=== PATIENT | female | born 1960 | race Caucasian/White ===

== ENCOUNTER 2017-06-16 08:01 | Inpatient (IN) | payer OTHER ==
[~2017-06-16] VITALS: Ht 167.6 cm; Wt 79.8 kg
[~2017-06-16 08:01] MED LIST: ANESTHESIA TRAY IN PYXIS 1 EA TRAY MC ONE; BACITRACIN 50000 UNITS/VIAL ONE; BUPIVACAINE 0.5 % PF 150 MG/30 ML VIAL ONE; CEFAZOLIN SODIUM/DEXTROSE,ISO 50 ML IV ONE; KETOROLAC TROMETHAMINE INJ 30 MG/ML VIAL ONE
[2017-06-16] MEDS ORDERED: TRANEXAMIC ACID 3,000 MG in SODIUM CHLORIDE IRRIG SOLUTION 70 ML IR ONE (09:00)
[2017-06-16] MEDS ORDERED: ROCURONIUM BROMIDE 50 MG/5 ML ONE (10:56)
[2017-06-16] MEDS ORDERED: FENTANYL PF 100MCG/2ML AMPUL ONE (10:56)
[2017-06-16] MEDS ORDERED: MIDAZOLAM HCL 2 MG/2ML VIAL ONE (10:56)
[2017-06-16] MEDS ORDERED: HYDROMORPHONE 1 MG/1 ML DISP.SYRIN ONE (12:59)
[2017-06-16] MEDS ORDERED: MEPERIDINE HCL/PF 50 MG/ML DISP.SYRIN ONE (13:02)
[2017-06-16 13:45] VITALS: BP 125/74
--- NOTE | 2017-06-16 14:00 | NUR ---
MS RN NOTES 57 YEARS OLD FEMALE TRANSFERRED FROM PACU, S/P LEFT KNEE ARTHROPLASTY BY DR. GOMES. PATIENT APPEARS MILDLY SEDATED AT THIS TIME BUT AROUSES EASILY. ON OXYGEN AT 2LPM VIA NC, NO SOB. V/S TAKEN AND RECORDED. LEFT KNEE DRESSING INTACT, KNEE IMMOBILIZER AND SCD IN PLACE. LU CATH INTACT, DRAINING TO GRAVITY, URINE CLEAR AND YELLOW, NO SEDIMENT NOTED. IV IN LEFT WRIST PATENT AND INTACT, FLUSHES WELL. PLACE CALL LIGHT WITHIN REACH. WILL CONT TO MONITOR.
[2017-06-16] MEDS ORDERED: PRAZ1CAP5 PO (15:35)
[2017-06-16] MEDS ORDERED: QUET100T PO (15:35)
[2017-06-16] MEDS ORDERED: ALPR1TAB2 PO (15:35)
[2017-06-16] MEDS ORDERED: OXYC-128 PO (15:35)
[2017-06-16 16:00] VITALS: BP 120/86
[2017-06-16] MEDS ORDERED: ACETAMINOPHEN 325 MG TABLET PO PRN (16:00)
[2017-06-16] MEDS ORDERED: ALPRAZOLAM 1 MG TABLET PO PRN ×2 (16:00→18:00)
[2017-06-16] MEDS ORDERED: DOCUSATE SODIUM 250 MG CAPSULE PO PRN (16:00)
[2017-06-16] MEDS ORDERED: SENNOSIDES 8.6 MG TABLET PO PRN (16:00)
[2017-06-16] MEDS ORDERED: HYDROCODONE/APAP 5/325MG 1 EACH TABLET PO PRN (16:00)
[2017-06-16] MEDS ORDERED: BISACODYL SUPP (10 MG) 10 MG/SUPP.RECT SUPP.RECT RC PRN ×2 (16:00→17:30)
[2017-06-16] MEDS ORDERED: ZOLPIDEM TARTRATE 5 MG TABLET PO PRN (16:30)
[2017-06-16] MEDS ORDERED: ONDANSETRON HCL/PF 4 MG/2 ML VIAL IVP PRN ×2 (16:30→18:00)
--- NOTE | 2017-06-16 16:36 | NUR ---
RECEIVED PHONE CALL FROM DR. AIKEN, REVIEWED CURRENT PAIN MEDICATIONS ORDERED WITH MD, AND PATIENTS REQUEST TO SWITCH NORCO TO PERCOCET, PER MD HE WILL CALL PHARMACY FOR PAIN MEDICATION ORDERS. PATIENT MADE AWARE.
[2017-06-16] MEDS: IV D5/0.45 NACL 1,000 ML IV PRN (16:38)
[2017-06-16] MEDS: oxyCODONE IR immediate release 5 MG CAPSULE PO PRN (17:12)
[2017-06-16 17:23] LABS: CHOLESTEROL 185 mg/dL (<200); HDL CHOLESTEROL 54 mg/dL (40-60); LDL 96 mg/dL (0-99); TRIGLYCERIDES 174 mg/dL (30-150)
[2017-06-16] MEDS ORDERED: BUPIVACAINE 0.25% 75 MG/30 ML VIAL ONE (17:27)
[2017-06-16] MEDS ORDERED: CLONIDINE HCL 0.1 MG TABLET PO PRN (17:30)
[2017-06-16] MEDS ORDERED: diphenhydrAMINE HCL 25 MG CAPSULE PO PRN (17:30)
[2017-06-16] MEDS ORDERED: MAG HYDROX/AL HYDROX/SIMETH 30 ML UDC PO PRN (17:30)
[2017-06-16] MEDS ORDERED: HYDROMORPHONE 1 MG/1 ML DISP.SYRIN IV PRN (17:30)
[2017-06-16] MEDS ORDERED: MENTHOL/CETYLPYRD (CEPACOL) 1 LOZ LOZENGE MM PRN (17:30)
[2017-06-16] MEDS: ASPIRIN 325 MG TABLET PO SCH (17:50)
[2017-06-16] MEDS ORDERED: NALOXONE HCL 0.4 MG/ML AMPUL IV PRN (18:00)
[2017-06-16] MEDS ORDERED: PROMETHAZINE HCL 25 MG/ML AMPUL IM PRN (18:00)
[2017-06-16] MEDS: ANCEF 1 GM/50 ML D5W IV SCH ×2 (18:09)
[2017-06-16] MEDS: HYDROMORPHONE MDV 30 MG in IV NS 0.9% 15 ML, PCA TOTAL VOLUME 1 BAG IV PRN ×3 (18:34)
--- NOTE | 2017-06-16 19:01 | NUR ---
MS RN CLOSING NOTES PT A&OX3 STATUS POST L ARTHROPLASTY. PT TOLERATING ROOM AIR WITH NO SOB. PT IV INTACT IN LEFT HAND RUNNING D5 1/2NS AT 125ML AND FITNESS AND WELLNESS DIRECTOR DILAUDID. LEFT LEG IMMOBILIZED, BI LAT DVT PUMPS. PT WITH NO COMPLAINTS OR CONCERNS AT THIS TIME. WILL ENDORSE TO PM NURSE.
[2017-06-16 20:00] VITALS: BP 112/62
--- NOTE | 2017-06-16 20:00 | NUR ---
MS KATINA INITIAL NOTES RECEIVED REPORT FROM AM NURSE AND CHECKED. SHE'S AWAKE AND ALERT WITH IVF OF D51/2 NS AT 125ML/HR INFUSING AT THIS TIME. PT ALSO ON MAGNAFLUX OPERATOR DILAUDID Mdv 30mg in OV0.9%Ns 50ml, 15ml,MAGNAFLUX OPERATOR total Volume 1 bag. concentration =1mg/ml, rate =0mg/hr, no adjustment up or down . MAGNAFLUX OPERATOR dose =0.2mg Lock out =10minutes 4hr limit =4 8mg as ordered. no signs of any acute distress noted at this time. left knee on immobilizer. bot heels up on pillows. kept her warm and comfortable at all times. will continue to monitor.
[2017-06-16] MEDS ORDERED: TRIMETHOBENZAMIDE IM PRN (21:30)
--- NOTE | 2017-06-16 21:35 | NUR ---
APPRENTICE LINEMAN THIRD STEP NOTES SEEN BY DR AIKEN WITH ORDERS NOTED AND CARRIED OUT.
[2017-06-16] MEDS ORDERED: NICOTINE PATCH (21MG) 21 MG PATCH.TD24 TD SCH (21:45)
[2017-06-16] MEDS ORDERED: QUETIAPINE FUMARATE 100 MG TABLET PO SCH (22:00)
[2017-06-16] MEDS ORDERED: NICOTINE PATCH (21MG) 21 MG PATCH.TD24 TD ONE (22:05)
[2017-06-16] MEDS ORDERED: ALPRAZOLAM 1 MG TABLET ONE (22:05)
[2017-06-16] MEDS: ALPRAZOLAM 1 MG TABLET PO PRN (22:09)
[2017-06-16] MEDS: PANTOPRAZOLE 40 MG TABLET.DR PO SCH (22:10)
--- NOTE | 2017-06-16 22:10 | NUR ---
PATTERNMAKER GRADER/NOTES ROUTINE MEDS GIVEN WELL HER XANAX 2MG PO PER PT REQUESTED MD ORDERED. SNACKS ALSO SERVED. KEPT HER WARM AND COMFORTABLE AT ALL TIMES. PLACE CALL LIGHT AT REACH.
[2017-06-16] MEDS: PRAZOSIN HCL 1 MG CAPSULE PO SCH (22:11)
[2017-06-17] MEDS: ANCEF 1 GM/50 ML D5W IV SCH ×2 (00:16)
--- NOTE | 2017-06-17 00:45 | NUR ---
MS TEAR DOWN MAN CLOSING NOTES GAVE REPORT TO ANOTHER NURSE AARON FOR CONTINUITY OF CARE.
--- NOTE | 2017-06-17 00:47 | NUR ---
MS/RN ASSUMED CARE OF THIS PATIENT FOR CONTINUITY OF CARE. PATIENT IS SLEEPING, AROUSABLE, APPEAR COMFORTABLE, NO DISTRESS NOTED, DIRECTOR OF RESERVATIONS IN PLACE, CALL LIGHT IN REACH. WILL MONITOR.
[2017-06-17] MEDS: IV D5/0.45 NACL 1,000 ML IV PRN ×3 (02:23→21:33)
[2017-06-17] MEDS ORDERED: ALPRAZOLAM 1 MG TABLET ONE (05:55)
[2017-06-17] MEDS: ALPRAZOLAM 1 MG TABLET PO PRN ×3 (05:56→22:29)
--- NOTE | 2017-06-17 06:04 | NUR ---
MS/RN PATIENT IS AWAKE AT THIS TIME, C/O ANXIETY/PANIC ATTACK, REQUESTED MEDICATION, XANAX 2 MG PO WAS GIVEN ORDERED. WILL MONITOR.
--- NOTE | 2017-06-17 06:48 | NUR ---
MS/RN PATIENT APPEAR SLEEPING AT THIS TIME, APPEAR COMFORTABLE, NO DISTRESS NOTED, CALL LIGHT IN REACH. WILL CONTINUE TO MONITOR.
[2017-06-17 07:46] LABS: BASOPHILS # (AUTO) 0.1 /CMM (0.0-0.2); BASOPHILS % (AUTO) 0.6 % (0.0-2.0); EOSINOPHILS # (AUTO) 0.2 /CMM (0.0-0.7); EOSINOPHILS % (AUTO) 1.9 % (0.0-6.0); HEMATOCRIT 34 % (33-45); HEMOGLOBIN 11.2 g/dL (11.5-14.8); LYMPHOCYTES # (AUTO) 2.6 /CMM (0.8-4.8); LYMPHOCYTES % (AUTO) 26.9 % (20.0-44.0); MEAN CORPUSCULAR HEMOGLOBIN 29 PG (26.0-33.0); MEAN CORPUSCULAR HGB CONC 33 g/dl (31.0-36.0); MEAN CORPUSCULAR VOLUME 87 fL (82-100); MONOCYTES # (AUTO) 0.6 /CMM (0.1-1.30); MONOCYTES % (AUTO) 6.4 % (2.0-12.0); NEUTROPHILS # (AUTO) 6.1 /CMM (1.8-8.9); NEUTROPHILS % (AUTO) 64.2 % (43.0-81.0); PLATELET COUNT (AUTO) 221 /CMM (150-450); RDW COEFFICIENT OF VARIATION 13.8 (11.5-15.0); RED BLOOD CELL COUNT(AUTO) 3.87 MIL/uL (4.0-5.2); WHITE BLOOD COUNT (AUTO) 9.6 K/uL (4.3-11.0)
--- NOTE | 2017-06-17 07:58 | NUR ---
MS RN OPENING NOTES PT RECEIVED FROM NIGHT NURSE AT 0710 WITH HYDROGENATION OPERATOR: DILUADID CONCENTRATION 1MG/ML, 25.4ML REMAINING, DOSE 0.2MG, 10MIN LOCKOUT. PT A&OX3, DROWSY AND WITH SOME SPEECH SLURRING. PT TOLERATING ROOM AIR WITH NO SOB BUT O2 SAT AT 90%, O2 COMMENCED VIA NC WITH SATS RETURNING TO 96%. LUNG [place] AUSCULTATED WITH BI-LAT WHEEZING PRESENT. BOWEL SOUNDS ACTIVE. PT IV LEFT HAND WITH D5 1/2NS RUNNING AT 125ML/PH. C/O HEADACHE 10/10, LEG PAIN /10.
[2017-06-17 08:00] VITALS: BP_SYST 101; BP_SYST 90; BP_DIAS 54
[2017-06-17 08:07] LABS: ALBUMIN 2.9 g/dL (3.4-5.0); BILIRUBIN,TOTAL 0.2 mg/dL (0.2-1.0); CALCIUM, SERUM 8.6 mg/dL (8.5-10.1); CREATININE 0.6 mg/dL (0.6-1.3); MAGNESIUM 1.9 mg/dL (1.8-2.4); PHOSPHORUS 4.8 mg/dL (2.5-4.9); POTASSIUM 4.1 mmol/L (3.5-5.1); TOTAL PROTEIN, SERUM 5.5 g/dL (6.4-8.2)
[2017-06-17 08:16] LABS: THYROID STIMULATING HORMONE 0.805 uIU/mL (0.358-3.74)
--- NOTE | 2017-06-17 10:19 | NUR ---
MS RN NOTES PHYSICAL THERAPY REPORTS 50 FT AMBULATION WITH X1 ASSISTANCE AND WALKER. WILL D/C ALY.
[2017-06-17] MEDS: ASPIRIN 325 MG TABLET PO SCH ×2 (10:40→18:03)
--- NOTE | 2017-06-17 11:52 | NUR ---
PATIENT IS SEEN BY MIGUELINA PRATHER/JENNIFER. WILL CHANGE DRESSING TO LEFT KNEE TOMORROW 06/18/17 PER PA. LU CATH REMOVED, OBTAINED 850 ML URINE. WILL MONITOR FOR URINARY RETENTION. OFFERED PO FLUIDS TO DRINK.
--- NOTE | 2017-06-17 12:49 | NUR ---
PATIENT IS CURRENTLY ON NICOTINE PATCH, REQUESTING TO SMOKE. HEALTH EDUCATION GIVEN TO THE PATIENT. DISCUSSED RISK AND BENEFITS OF SMOKING CESSATION BY USE OF NICOTINE PATCH, BUT PATIENT STILL INSISTED TO SMOKE. NOTIFIED DR. TIJERINA.
--- NOTE | 2017-06-17 13:07 | NUR ---
PATIENT SIGNED SMOKING CONSENT FORM. NICOTINE PATCH WAS DC'D AND PATCHED WAS REMOVED.
--- NOTE | 2017-06-17 15:15 | NUR ---
MS RN NOTES PT OOB OF BED AND SEATED APPROX 80MINS WITH L KNEE IMMOBILIZED. PT REPORTED INCREASING ANXIETY R/T NEED FOR CIGARETTES, STOGIE PACKER ESCORT VIA WHEELCHAIR FOR CIGARETTE. PT RETURNED, NO CONCERNS OR COMPLAINTS AT THIS TIME.
[2017-06-17 16:00] VITALS: BP 108/63
[2017-06-17] MEDS: DOCUSATE SODIUM 100 MG CAPSULE PO SCH (18:03)
--- NOTE | 2017-06-17 18:18 | NUR ---
HYDROCODONE SALES ATTENDANT BUILDING MATERIALS IV 24 HOURS BAG REPLACED PER PROTOCOL. WAISTED 15ML HYDROCODONE FROM THE BAG, WITNESSED BY ANOTHER KAYLA.
[2017-06-17] MEDS: HYDROMORPHONE MDV 30 MG in IV NS 0.9% 15 ML, PCA TOTAL VOLUME 1 BAG IV PRN ×3 (18:29)
--- NOTE | 2017-06-17 18:29 | NUR ---
HANG 2ND BAG OF HYDROCODONE IV ELECTION CLERK WITNESSED BY ANOTHER RN-YOLANDE.
--- NOTE | 2017-06-17 19:00 | NUR ---
MS RN CLOSING NOTES PT ENDORSED TO NIGHT NURSE WITH AT 1915 WITH VENEER JOINTER OPERATOR: DILUADID CONCENTRATION 1MG/ML, 29.6ML REMAINING, DOSE 0.2MG, 10MIN LOCKOUT. PT A&OX3, RESTING IN BED. BED IN LOWEST LOCKED POSITION WITH HANDRAILSX3 AND CALL WILKERSON IN REACH. PT WITH O2 SAT MONITORING R/T VENEER JOINTER OPERATOR. PT WITH O2 2L/MIN VIA NC, NO SOB OR DISTRESS. PT WITH IV G#20 RIGHT WRIST PATENT AND RUNNING D5 1/2NS 125ML/PH AND VENEER JOINTER OPERATOR. ALL DAY NURSE DUTIES ATTENDED TO. PT WITH NO CONCERNS OR COMPLAINTS AT THIS TIME. WILL ENDORSE PT TO NIGHT NURSE.
--- NOTE | 2017-06-17 19:35 | NUR ---
MS RN NOTE\ RECEIVED PATIENT FROM DAY SHIFT, PATIENT IS ALERT AND ORIENTEDX4, DENIES RESPIRATORY DISTRESS AND COMPLAINS OF LEFT KNEE PAIN DUE TO S/P SURGERY YESTERDAY CURRENTLY ON PACKAGE SEALER MACHINE PUMP. IV ON LEFT WRIST IS PATENT AND INTACT, PACKAGE SEALER MACHINE AND FLUID ARE RUNNING. SRX2, BED IN LOW POSITION, CALL LIGHT WITHIN REACH, WILL CONTINUE TO MONITOR PATIENT.
[2017-06-17 20:00] VITALS: BP 99/58
[2017-06-17] MEDS ORDERED: NICOTINE PATCH (21MG) 21 MG PATCH.TD24 TD SCH (21:00)
[2017-06-17] MEDS: PANTOPRAZOLE 40 MG TABLET.DR PO SCH (21:27)
[2017-06-17] MEDS: QUETIAPINE FUMARATE 100 MG TABLET PO PRN (21:32)
[2017-06-17] MEDS: PRAZOSIN HCL 1 MG CAPSULE PO SCH (21:33)
--- NOTE | 2017-06-17 22:45 | NUR ---
MS RN NOTE DR. AIKEN SAW THE PATIENT AND ORDERED TO D/C SAP CRM DEVELOPER PUMP AT NOON TOMORROW, AND ADMINISTER BREAKTHROUGH PAIN MED OXY IR PO AND DILAUDID 1MG IVP.
[2017-06-18] MEDS: IV D5/0.45 NACL 1,000 ML IV PRN (06:03)
--- NOTE | 2017-06-18 06:43 | NUR ---
MS RN NOTE PATIENT IS SLEEPING IN BED COMFORTABLY, NO S/S OF RESPIRATORY DISTRESS, O2 SAT 95%, NO FACIAL GRIMACE NOTED. IV ON RIGHT WRIST IS PATENT AND INTACT, FLUID IS RUNNING ALONG WITH HONING MACHINE OPERATOR PUMP. WILL ENDORSE TO DAY SHIFT NURSE FOR PRADEEP.
--- NOTE | 2017-06-18 07:30 | NUR ---
MS RN OPENING NOTE PATIENT IS ALERT AND ORIENTED x4. NO PAIN AT THIS TIME. NO SOB OR DISTRESS NOTED. CALL LIGHT WITHIN REACH. SAFETY MEASURES IMPLEMENTED. ABLE TO COMMUNICATE NEEDS. USES BEDSIDE COMMODE, OR IS ABLE TO AMBULATE TO RESTROOM WITH ASSISTANCE. IV ON RIGHT WRIST INTACT AND PATENT NO REDNESS OR DWELLING NOTED. PATIENT IS ON CLAIMS ADJUSTOR PUMP AT THIS TIME AND TO BE DISCONTINUED AT NOON PER PAIN MANAGEMENT MD. S/P LEFT KNEE REPLACEMENT ON 06/16 BY . WILL CONTINUE TO MONITOR THROUGHOUT SHIFT
[2017-06-18 08:00] VITALS: BP 125/70
[2017-06-18] MEDS: ALPRAZOLAM 1 MG TABLET PO PRN ×2 (08:17→16:34)
[2017-06-18] MEDS: DOCUSATE SODIUM 100 MG CAPSULE PO SCH ×2 (08:17→16:34)
[2017-06-18] MEDS: ASPIRIN 325 MG TABLET PO SCH ×2 (08:17→16:34)
--- NOTE | 2017-06-18 09:00 | NUR ---
MS RN NOTE PATIENT'S IV CAME OUT. SKIN INTACT. REMOVED AND NEW ONE STARTED ON RIGHT HAND 22G.
--- NOTE | 2017-06-18 09:30 | NUR ---
MS RN NOTE RIGHT HAND IV PULLED OUT DURING PHYSICAL THERAPY. CLEANED PATIENT, SKIN INTACT. NEW ONE STARTED ON LEFT FOREARM 22G INTACT AND PATENT NO REDNESS OR SWELLING, FLUSHES WELL.
[2017-06-18] MEDS ORDERED: ASPI325T2 PO (10:59)
[2017-06-18] MEDS: oxyCODONE IR immediate release 5 MG CAPSULE PO PRN ×2 (11:40→14:46)
--- NOTE | 2017-06-18 12:00 | NUR ---
MS RN NOTE ENVIRONMENTAL ENGINEERING MANAGER PUMP DISCONTINUED. WITNESS WITH RICCO RHOADES. DOCUMENTED. CHARGE NURSE AND PHARMACY AWARE
[2017-06-18] MEDS ORDERED: KEY,NONCONTROL,TO KEEP IN PYXI 1 EA MC ONE (12:33)
[2017-06-18 16:00] VITALS: BP 119/68
[2017-06-18] MEDS: HYDROMORPHONE 1 MG/1 ML DISP.SYRIN SQ PRN ×2 (17:59→21:35)
--- NOTE | 2017-06-18 18:24 | NUR ---
MS RN CLOSING NOTE PATIENT IS ALERT AND ORIENTED x4. PAIN 8/10 ON LEFT KNEE, PAIN MEDICATION GIVEN. NO SOB OR DISTRESS NOTED. CALL LIGHT WITHIN REACH AT ALL TIMES. SAFETY MEASURES IMPLEMENTED. ALL DUE MEDICATIONS GIVEN ORDERED. ALL NURSING CARE NEEDS ATTENDED TO. ABLE TO COMMUNICATE NEEDS. IV ON LEFT FOREARM INTACT AND PATENT NO REDNESS OR SWELLING NOTED. PATIENT DOES NOT WANT IV FLUIDS AT THIS TIME. POSSIBLE DISCHARGE TOMORROW TO [facility], FOLLOW UP WITH CASE MANAGEMENT. NO LABS FOR TOMORROW. FULL WEIGHT BEARING WITH BRACE AND WALKER. WILL ENDORSE TO ASSEMBLY INSPECTOR NURSE FOR PRADEEP
--- NOTE | 2017-06-18 19:25 | NUR ---
MS/RN NOTES RECEIVED PT. LYING IN BED AWAKE, ALERT AND ORIENTED X4. BREATHING EVEN AND UNLABORED ON ROOM AIR. NO SOB, RESPIRATORY DISTRESS NOTED. PT. COMPLAINING OF PAIN IN HER LEFT KNEE 11/25. PT. STATES THE PAIN IS A LOT BETTER AFTER RECEIVING PAIN MEDICATION EARLIER. WILL CONTINUE TO MONITOR AND ASSESS PAIN. WILL ADMINISTER TO PT. PAIN MEDICATION ORDERED. PT. WITH LEFT FOREARM 22 GAUGE IV SALINE LOCK PRESENT, PATENT AND INTACT. PT. REFUSING IV FLUIDS AT THIS TIME STATING SHE IS DRINKING ENOUGH WATER. INSTRUCTED PT. TO USE THE CALL LIGHT FOR ASSISTANCE BEFORE AMBULATING. PT. VERBALIZED UNDERSTANDING. BED LOCKED AND IN LOWEST POSITION, SIDE RAILS UP X2, CALL LIGHT WITHIN REACH, WILL CONTINUE TO MONITOR.
[2017-06-18 20:00] VITALS: BP 119/76
[2017-06-18] MEDS: PRAZOSIN HCL 1 MG CAPSULE PO SCH (21:34)
[2017-06-18] MEDS: PANTOPRAZOLE 40 MG TABLET.DR PO SCH (21:35)
[2017-06-18] MEDS: QUETIAPINE FUMARATE 100 MG TABLET PO PRN (22:59)
--- NOTE | 2017-06-19 | NUR ---
MS/RN NOTES PT. IS LYING IN BED RESTING. BREATHING EVEN AND UNLABORED ON ROOM AIR. PT. APPEARS COMFORTABLE AT THIS TIME. GAVE REPORT AND ENDORSED PT. TO RICCO JORDAN FOR CONTINUITY OF CARE.
--- NOTE | 2017-06-19 00:05 | NUR ---
MS RN NOTE GOT A REPORT FROM KELSEY CHACKO FOR PRADEEP. PATIENT IS SLEEPING COMFORTABLY AT THIS TIME.
[2017-06-19] MEDS: ALPRAZOLAM 1 MG TABLET PO PRN (06:16)
--- NOTE | 2017-06-19 06:46 | NUR ---
MS RN NOTE PATIENT IS RESTING IN BED COMFORTABLY, NO S/S OF RESPIRATORY DISTRESS AND NO PAIN REPORTED AT THIS TIME. IV ON LEFT FA IS PATENT AND INTACT. WILL ENDORSE TO DAY SHIFT NURSE FOR PRADEEP.
--- NOTE | 2017-06-19 07:10 | NUR ---
RN NOTES PT IS IN BED, RESTING COMFORTABLY. PT ON RA, RESPIRATIONS ARE EVEN AND UNLABORED. IV ON LFA INTACT AND PATENT. SAFETY MEASURES ARE IN PLACE, CALL LIGHT IS IN REACH. WILL CONTINUE TO MONITOR.
[2017-06-19] MEDS: HYDROMORPHONE 1 MG/1 ML DISP.SYRIN SQ PRN ×2 (07:36→11:30)
[2017-06-19 08:00] VITALS: BP_SYST 110; BP_SYST 93; BP_DIAS 64; BP_DIAS 79
[2017-06-19] MEDS: ASPIRIN 325 MG TABLET PO SCH (08:03)
[2017-06-19] MEDS: DOCUSATE SODIUM 100 MG CAPSULE PO SCH (08:03)
[2017-06-19] MEDS ORDERED: FLU VACC QS 2017-18(36MOS+)/PF 0.5 ML DISP.SYRIN IM ONE (09:30)
[2017-06-19] MEDS: oxyCODONE IR immediate release 5 MG CAPSULE PO PRN (09:42)
[2017-06-19] MEDS ORDERED: AMOX500C2 PO (09:45)
[2017-06-19] MEDS ORDERED: TRIM300C14 PO (09:45)
--- NOTE | 2017-06-19 12:44 | NUR ---
RN NOTES PT WAS DISCHARGED TO HOME ACCOMPANIED BY [facility]. PT LEFT IN STABLE CONDITION. DISCHARGE PAPERS AND BELONGINGS LIST WERE SIGNED. IV AND ID BANDS WERE REMOVED. PT WAS GIVEN PRESCRIPTIONS TO HAVE FILLED AT HOME. PT WAS TOLD TO FOLLOW UP WITH PCP, DENTIST, AND ORTHOPEDIC SURGEON WITHIN 1 WEEK AND STATED SHE WOULD MAKE THE APPOINTMENTS ON HER OWN.
== END 2017-06-19 12:50 | disposition home health service (06) | DRG 470 ==
LOC: DS 08:01 → MED 14:41
PROVIDERS: ADMIT Specialist; ATTEND Specialist
PROC: 0SRD0J9 Replacement of Left Knee Joint with Synthetic Substitute, Cemented, Open Approach (ICD-10-PCS; principal; 2017-06-16 11:31)
DX: M17.12 Unilateral primary osteoarthritis, left knee (principal); F13.20 Sedative, hypnotic or anxiolytic dependence, uncomplicated; E66.9 Obesity, unspecified; F32.9 Major depressive disorder, single episode, unspecified; Z68.28 Body mass index [BMI] 28.0-28.9, adult; F41.9 Anxiety disorder, unspecified; F17.210 Nicotine dependence, cigarettes, uncomplicated; G89.4 Chronic pain syndrome; K05.10 Chronic gingivitis, plaque induced
CPT/HCPCS: 36415; 80053-TC; 80061-TC; 83735-TC; 84100-TC; 84443-TC; 85025-TC; 86850-TC; 86921-TC; 87081-TC; 88305-TC; 97110-TC; 97116-TC; 97530-TC; 97760-TC; A4216; A4217; A4606; A6402; C1713; J0690; J1170; J1885; J2175; J2250; J2405; J2704; J2710; J3010; J3250; J3490; J7060; J7120; Q2036; Z7610

== ENCOUNTER 2017-06-26 16:39 | Emergency (ER) | payer OTHER ==
[~2017-06-26] VITALS: Ht 167.6 cm; Wt 78.5 kg
[~2017-06-26 16:39] MED LIST changes: +ALPR1TAB2 PO; +AMOX500C2 PO; -ANESTHESIA TRAY IN PYXIS 1 EA TRAY MC ONE; +ASPI325T2 PO; -BACITRACIN 50000 UNITS/VIAL ONE; -BUPIVACAINE 0.5 % PF 150 MG/30 ML VIAL ONE; -CEFAZOLIN SODIUM/DEXTROSE,ISO 50 ML IV ONE; -KETOROLAC TROMETHAMINE INJ 30 MG/ML VIAL ONE; +OXYC-128 PO; +PRAZ1CAP5 PO; +QUET100T PO; +TRIM300C14 PO
--- NOTE | 2017-06-26 16:40 | NUR ---
BIB SELF C/O LEFT LEG SWELLING AND PAIN SENT BY MD R/O DVT . HAD LEFT KNEE REPLACEMENT X 7 DAYS TREE [employer]UIT AND NUT CROPS FARMER, NAD NOTED, VSS, WAITING FOR MD ERWIN.
[2017-06-26] MEDS ORDERED: HYDROCODONE/APAP 10/325MG 1 EA TABLET ONE ×2 (17:18→19:35)
[2017-06-26] MEDS ORDERED: ONDANSETRON 4 MG TAB.RAPDIS ONE (17:19)
[2017-06-26 17:21] LABS: BASOPHILS % (AUTO) 0.4 % (0.0-2.0); EOSINOPHILS # (AUTO) 0.3 /CMM (0.0-0.7); EOSINOPHILS % (AUTO) 4.9 % (0.0-6.0); HEMATOCRIT 33 % (33-45); HEMOGLOBIN 11.2 g/dL (11.5-14.8); LYMPHOCYTES # (AUTO) 1.4 /CMM (0.8-4.8); LYMPHOCYTES % (AUTO) 22.2 % (20.0-44.0); MEAN CORPUSCULAR HEMOGLOBIN 28 PG (26.0-33.0); MEAN CORPUSCULAR HGB CONC 33 g/dl (31.0-36.0); MEAN CORPUSCULAR VOLUME 85 fL (82-100); MONOCYTES # (AUTO) 0.6 /CMM (0.1-1.30); MONOCYTES % (AUTO) 10.1 % (2.0-12.0); NEUTROPHILS # (AUTO) 4.1 /CMM (1.8-8.9); NEUTROPHILS % (AUTO) 62.4 % (43.0-81.0); PLATELET COUNT (AUTO) 714 /CMM (150-450); RDW COEFFICIENT OF VARIATION 13.1 (11.5-15.0); RED BLOOD CELL COUNT(AUTO) 3.94 MIL/uL (4.0-5.2); WHITE BLOOD COUNT (AUTO) 6.4 K/uL (4.3-11.0)
[2017-06-26] MEDS ORDERED: HYDROCODONE/APAP 10/325MG 1 EA TABLET PO ONE ×2 (17:30→19:30)
[2017-06-26] MEDS ORDERED: ONDANSETRON 4 MG TAB.RAPDIS SL ONE (17:30)
[2017-06-26 17:31] LABS: CALCIUM, SERUM 8.7 mg/dL (8.5-10.1); CREATININE 0.8 mg/dL (0.6-1.3); POTASSIUM 3.9 mmol/L (3.5-5.1)
[2017-06-26 17:37] LABS: INR 0.88 (0.87-1.13); PROTHROMBIN TIME 9.2 SECS (9.5-12.7)
--- NOTE | 2017-06-26 18:50 | NUR ---
CALLED US [facility], ON ITS WAY
[2017-06-26] MEDS ORDERED: ALPRAZOLAM 0.25 MG TABLET PO ONE (19:30)
[2017-06-26] MEDS ORDERED: ALPRAZOLAM 0.5 MG TABLET ONE (19:35)
[2017-06-26 19:49] VITALS: BP 128/85
== END 2017-06-26 20:17 | disposition home or self-care (01) ==
LOC: ER 16:41
DX: R60.0 Localized edema (principal); M79.89 Other specified soft tissue disorders; I10 Essential (primary) hypertension; M19.90 Unspecified osteoarthritis, unspecified site; G89.29 Other chronic pain; F17.200 Nicotine dependence, unspecified, uncomplicated; Z79.82 Long term (current) use of aspirin; Z96.652 Presence of left artificial knee joint; Z88.5 Allergy status to narcotic agent
CPT/HCPCS: 36415; 80048-TC; 85025-TC; 85730-TC; 93971-TC; A4606; Q0162; Z7610